=== PATIENT | female | born 1965 | race Caucasian/White ===

== ENCOUNTER 2018-11-03 08:57 | Emergency (ER) | payer OTHER ==
[2018-11-03 09:02] VITALS: Ht 160 cm
[2018-11-03 10:18] LABS: microscopic required? YES; urine erythrocyte 1+ (NEGATIVE)
[2018-11-03 10:21] LABS: CALCIUM 8.8 mg/dL (8.5-10.1); CARBON DIOXIDE 29.3 mmol/L (21-32); CHLORIDE SERUM 105 mmol/L (98-107); CREATININE SERUM 0.9 mg/dL (0.6-1.0); GFR1 > 60 mL/min; GLUCOSE SERUM 90 mg/dL (74-106); POTASSIUM SERUM 4.3 mmol/L (3.5-5.1); SODIUM SERUM 142 mmol/L (136-145)
[2018-11-03 10:26] LABS: ALKALINE PHOSPHATASE 67 U/L (46-116); ALT/SGPT 21 U/L (14-59); AST/SGOT 10 U/L (15-37); BILIRUBIN TOTAL 0.82 mg/dL (0.20-1.00); LIPASE 130 IU/L (73-393); TOTAL PROTEIN, SERUM 7.6 g/dL (6.4-8.2)
[2018-11-03 10:27] LABS: ALBUMIN 3.3 g/dL (3.4-5.0)
[2018-11-03 11:15] LABS: BASOPHIL % 0.5 % (0-2); PLATELET COUNT 285 x10^3mcL (130-400); RED CELL DISTRIBUTION WIDTH 13.5 % (11.5-14.5)
[2018-11-03 14:05] VITALS: BP 118/67
== END 2018-11-03 14:05 | disposition home or self-care (01) ==
LOC: ED 08:57 → MU 13:05 → ED 13:05
PROVIDERS: Emergency Medicine
DX: R10.13 Epigastric pain (principal); R10.11 Right upper quadrant pain; R61 Generalized hyperhidrosis; Z90.711 Acquired absence of uterus with remaining cervical stump
CPT/HCPCS: J2405; J3490; J7030; Q0092